=== PATIENT | female | born 1995 | race Caucasian/White ===

== ENCOUNTER 2020-08-15 08:50 | Emergency (ER) | payer OTHER, SELFPAY ==
[2020-08-15 09:04] VITALS: BP 132/89; PULSE 87; RESP 16; TEMP 36.2; O2SAT 99
--- NOTE | 2020-08-15 09:18 | ED.SKABFB ---
HPI - Skin/Abscess/Foreign Bdy General Chief complaint: Skin/Abscess/Foreign Body Stated complaint: Possible spider bite Time Seen by Provider: 08/15/20 09:12 Source: patient and RN notes reviewed Mode of arrival: ambulatory Limitations: no limitations History of Present Illness HPI narrative: 25 year old female presents with concern for infected wound. Reports she noticed a slightly tender area in her groin several days ago, already has become more painful and tender. She reports slightly bloody drainage from the area. She denies any purulent drainage, fever, malaise. Reports history of getting ingrown hairs, folliculitis. MD complaint: abscess/boil Related Data Allergies Allergy/AdvReac Type Severity Reaction Status Date / Time CEPHALEXIN MONOHYDRATE Allergy Unknown Anaphylactic Uncoded 08/15/20 09:10 Shock unkown x2 Allergy Unknown Unknown Uncoded 01/11/19 13:36 Review of Systems Review of Systems: Narrative: CONSTITUTIONAL: Denies malaise, chills, sweats, or fever. CARDIOVASCULAR: Denies chest pain, palpitations, or edema. RESPIRATORY: Denies cough or dyspnea. GASTROINTESTINAL: Denies abdominal pain, nausea, vomiting, diarrhea SKIN: Reports a painful tender area near her groin MUSCULOSKELETAL: Denies myalgia. NEUROLOGIC: Denies headache. All systems reviewed & are unremarkable except as noted in HPI and below PMFSH Social History Social History Gender identity (if verbalized by the patient): Female Comments At time of signature, agree with nursing past medical, surgical, social and family history. There is no relevant family history pertinent to the presenting complaint Exam Narrative: Exam Narrative: GENERAL: Well-appearing, well-nourished, and in no acute distress. HEAD: Normocephalic, atraumatic. EYES: PERRLA, conjunctivae clear ENT: Mucous membranes moist. NECK: Supple. CHEST: No respiratory distress. Speaks in full sentences. HEART: Regular rate and rhythm. SKIN: Warm, dry, no rash. Skin tear 2 cm long noted to the right groin area surrounded by 4 cm in diameter of induration, erythema, tenderness. No fluctuation noted NEURO: Alert and oriented x3. PSYCH: Normal mood and affect Course Course Emergency Course: Patient is aware of diagnosis, understands and agrees to treatment plan. Anticipatory guidance given. Patient agrees to follow-up as directed and is aware of reasons to seek care at the emergency department. Portions of this record may have been created with voice recognition software Vital Signs Vital signs: Vital Signs Temperature 97.2 F L 08/15/20 09:04 Pulse Rate 87 08/15/20 09:04 Respiratory Rate 16 08/15/20 09:04 Blood Pressure 132/89 08/15/20 09:04 Pulse Oximetry 99 08/15/20 09:04 Temperature 97.2 F L 08/15/20 09:04 Pulse Rate 87 08/15/20 09:04 Respiratory Rate 16 08/15/20 09:04 Blood Pressure 132/89 08/15/20 09:04 Pulse Oximetry 99 08/15/20 09:04 Reviewed. Patient has been instructed to follow up with her primary care provider within the next week regarding her elevated blood pressure today. MDM - Skin/Abscess/Foreign Bdy MDM Narrative Medical decision making narrative: Exam findings show no acute concerns or changes; patient is non-toxic appearing and is in no distress. Patient is appropriate for outpatient treatment and follow-up. Differential Diagnosis Differential diagnosis: Likely abscess of skin or subcutaneous tissue, cellulitis and other (Folliculitis) Critical Care Time Critical Care Time Critical Care Time: No Discharge Plan Discharge Clinical Impression: Wound infection Patient Disposition: Home, Self-Care Condition: Stable Instructions: Antibiotic Form, Wound Infection (ED) Additional Instructions: Please follow up with your Primary Care Doctor within 48-72 hours - call for an appointment. Apply moist heat 3-4 times daily for 10-15 minutes. Take Motrin 600mg every 8 hours with food for pain. Please take Antibio
== END 2020-08-15 09:29 | disposition home or self-care (01) ==
PROVIDERS: Emergency Provider Nurse Practitioner
DX: L08.9 Local infection of the skin and subcutaneous tissue, unspecified (principal); S31.103A Unspecified open wound of abdominal wall, right lower quadrant without penetration into peritoneal cavity, initial encounter; X58.XXXA Exposure to other specified factors, initial encounter
CPT/HCPCS: 99213; G0463

== ENCOUNTER 2020-09-25 09:10 | Emergency (ER) | payer OTHER, SELFPAY ==
--- NOTE | 2020-09-25 09:21 | ED.EAR ---
HPI - Ear Problem General Chief complaint: Ear Stated complaint: possible ear infection Time Seen by Provider: 09/25/20 09:21 Source: patient and RN notes reviewed Mode of arrival: ambulatory Limitations: no limitations History of Present Illness HPI Narrative: 25-year-old female presents with concern for left ear pain. Reports 3-day history of sinus congestion, drainage. Reports history of sinus problems related to allergies. Denies taking any medications for her symptoms. She denies cough, shortness of breath, fever, body aches, chills, sweats, loss of sense of taste or sense of smell Complaint: ear pain Related Data Allergies Allergy/AdvReac Type Severity Reaction Status Date / Time cephalexin Allergy Severe Anaphylactic Verified 09/25/20 09:19 Shock unkown x2 Allergy Unknown Unknown Uncoded 01/11/19 13:36 Review of Systems Review of Systems: Narrative: CONSTITUTIONAL: Denies malaise, chills, sweats, or fever. EYES: Denies visual changes, redness, or discharge. ENT: Reports rhinorrhea, congestion, otalgia. Denies sinus pain, sore throat. CARDIOVASCULAR: Denies chest pain, palpitations, or edema. RESPIRATORY: Denies cough or dyspnea. GASTROINTESTINAL: Denies abdominal pain, nausea, vomiting, diarrhea SKIN: Denies rash or itching. MUSCULOSKELETAL: Denies myalgia. NEUROLOGIC: Denies headache. All systems reviewed & are unremarkable except as noted in HPI and below PMFSH Social History Social History Gender identity (if verbalized by the patient): Female Comments At time of signature, agree with nursing past medical, surgical, social and family history. There is no relevant family history pertinent to the presenting complaint Exam Narrative: Exam Narrative: GENERAL: Well-appearing, well-nourished, and in no acute distress. HEAD: Normocephalic EYES: PERRLA, conjunctivae clear ENT: Nares clear, turbinates edematous and erythematous, clear discharge. Mucous membranes moist. TM pearly anne with sharp light reflex bilaterally; no tragal tenderness. Oropharynx not erythematous without lesions. Tonsils not enlarged and without exudate, no drooling, no hoarseness, no trismus, uvula midline. NECK: Supple. No lymphadenopathy CHEST: Clear to auscultation, breath sounds equal. No wheezing, rhonchi, rales, or stridor. No respiratory distress, speaks in full sentences. HEART: Regular rate and rhythm. No murmur heard. SKIN: Warm, dry, no rash. NEURO: Alert and oriented x3. PSYCH: Normal mood and affect Course Course Emergency Course: Patient is aware of diagnosis, understands and agrees to treatment plan. Anticipatory guidance given. Patient agrees to follow-up as directed and is aware of reasons to seek care at the emergency department. Portions of this record may have been created with voice recognition software Vital Signs Vital signs: Vital Signs Temperature 98.5 F 09/25/20 09:22 Pulse Rate 82 09/25/20 09:22 Respiratory Rate 16 09/25/20 09:22 Blood Pressure 136/81 09/25/20 09:22 Pulse Oximetry 99 09/25/20 09:22 Temperature 98.5 F 09/25/20 09:22 Pulse Rate 82 09/25/20 09:22 Respiratory Rate 16 09/25/20 09:22 Blood Pressure 136/81 09/25/20 09:22 Pulse Oximetry 99 09/25/20 09:22 Reviewed. Patient has been instructed to follow up with her primary care provider within the next week regarding her elevated blood pressure today. Medical Decision Making MDM Narrative Medical decision making narrative: Exam findings show no acute concerns or changes; patient is non-toxic appearing and is in no distress. Patient is appropriate for outpatient treatment and follow-up. Vital Signs Vital Signs: Vital Signs Temperature 98.5 F 09/25/20 09:22 Pulse Rate 82 09/25/20 09:22 Respiratory Rate 16 09/25/20 09:22 Blood Pressure 136/81 09/25/20 09:22 Pulse Oximetry 99 09/25/20 09:22 Temperature 98.5 F 09/25/20 09:22 Pulse Rate 82 09/25/20 09:22 Respiratory Rate 16
[2020-09-25 09:22] VITALS: BP 136/81; PULSE 82; RESP 16; TEMP 36.9; O2SAT 99
== END 2020-09-25 09:38 | disposition home or self-care (01) ==
PROVIDERS: Emergency Provider Nurse Practitioner
DX: H92.09 Otalgia, unspecified ear (principal); J34.89 Other specified disorders of nose and nasal sinuses
CPT/HCPCS: 99213; G0463